=== PATIENT | male | born 1990 | race Hispanic/Latino ===

== ENCOUNTER 2018-07-13 13:22 | Emergency (ER) | payer OTHER ==
[2018-07-13] MEDS ORDERED: ORPHENADRINE CITRATE 30 MG/ML ML ONE (14:31)
[2018-07-13] MEDS ORDERED: KETOROLAC TROMETHAMINE 60 MG/2 ML VIAL ONE (14:31)
== END 2018-07-13 15:17 | disposition home or self-care (01) ==
LOC: EDH 13:22
DX: S33.5XXA Sprain of ligaments of lumbar spine, initial encounter (principal); X50.0XXA Overexertion from strenuous movement or load, initial encounter; Y93.89 Activity, other specified; Y92.89 Other specified places as the place of occurrence of the external cause; Y99.8 Other external cause status
CPT/HCPCS: 72100; 96372 ×2; 99283; J1885; J2360

== ENCOUNTER 2019-09-28 10:47 | Day surgery (SDC) | payer OTHER ==
[2019-09-26 14:28] LABS: BASOPHILS % (AUTO) 0.4 % (0.0-5.0); EOSINOPHILS % (AUTO) 1.8 % (0.0-8.0); HEMATOCRIT 42.7 % (42-54); LYMPHOCYTES % (AUTO) 35.2 % (21.0-51.0); MEAN CORPUSCULAR HEMOGLOBIN 29.1 pg (27.0-33.0); MONOCYTES % (AUTO) 7.5 % (3.0-13.0); NEUTROPHILS % (AUTO) 54.9 % (40.0-77.0); PLATELET COUNT (AUTO) 209 K/uL (130-400); RED BLOOD CELL COUNT(AUTO) 4.85 MIL/uL (4.50-6.20); RED CELL DISTRIBUTION WIDTH 13.2 % (11.0-15.5); WHITE BLOOD COUNT (AUTO) 4.9 K/uL (4.8-10.8)
[2019-09-26 14:44] LABS: POTASSIUM 4.3 mmol/L (3.5-5.1)
[2019-09-27 11:31] VITALS: BP 153/74
--- NOTE | 2019-09-27 11:50 | NUR ---
MEDS DR. BO INFORMED THAT PT WAS ON PO ANTIBIOTICS DUE TO TOOTH INFECTION , NO FURTHER ORDERS GIVEN.
[2019-09-28] VITALS (18 sets, daily range): BP systolic 130–151; BP diastolic 78–90
[~2019-09-28] VITALS: Ht 167.6 cm; Wt 97.7 kg
[~2019-09-28 10:47] MED LIST: PENI500T2 PO
[2019-09-28] MEDS ORDERED: LACTATED RINGERS 1000ML 1,000 ML IV ONE (11:04)
[2019-09-28] MEDS: CEFAZOLIN SODIUM 1 GM VIAL IVP SCH ×2 (11:50→15:00)
[2019-09-28] MEDS ORDERED: LIDOCAINE PF 2% 5ML ABBOJECT ONE (13:40)
[2019-09-28] MEDS ORDERED: PROPOFOL 10 MG/ML 20ML VIAL IV ONE (13:41)
[2019-09-28] MEDS ORDERED: MIDAZOLAM HCL 1 MG/ML 2ML VIAL ONE (13:41)
[2019-09-28] MEDS ORDERED: ROCURONIUM 10MG/1ML SYR 10 MG/ML ML ONE ×2 (13:41→15:16)
[2019-09-28] MEDS ORDERED: DEXAMETHASONE SOD PHOSPHATE 10MG/ML 1ML VIAL ONE (13:41)
[2019-09-28] MEDS ORDERED: FENTANYL CITRATE PF 50 MCG/1 ML 5ML AMP IV ONE (13:41)
[2019-09-28] MEDS ORDERED: GLYCOPYRROLATE 1 MG/5 ML SYRINGE ONE (13:42)
[2019-09-28] MEDS ORDERED: NEOSTIGMINE 5MG/5ML SYR IV ONE (13:42)
[2019-09-28] MEDS ORDERED: ONDANSETRON HCL 4 MG/2 ML VIAL ONE (13:42)
[2019-09-28] MEDS ORDERED: EPINEPHRINE 1 MG/ML 30ML VIAL IJ ONE (13:54)
[2019-09-28] MEDS ORDERED: ROPIVACAINE 0.5% 5MG/ML 30ML IJ ONE (13:55)
[2019-09-28] MEDS ORDERED: EPHEDRINE SULFATE 50 MG/ML AMPULE ONE (14:39)
[2019-09-28] MEDS ORDERED: HETASTARCH IN 0.9 % NACL 500 ML IV ONE (14:44)
[2019-09-28] MEDS ORDERED: PHENYLEPHRINE HCL 10 MG/ML 1ML VIAL IV ONE (15:45)
[2019-09-28] MEDS ORDERED: NAPR-1023 PO (17:22)
[2019-09-28] MEDS ORDERED: CEPH500B PO (17:22)
[2019-09-28] MEDS ORDERED: HYDR-4457 PO (17:22)
[2019-09-28] MEDS ORDERED: KETOROLAC TROMETHAMINE 30MG/ML ONE (17:24)
--- NOTE | 2019-09-28 18:45 | NUR ---
ASSESSMENT RECEIVED PT FROM PACU STAFF DENG RN. PT [id number]. RIGHT ARM IN SLING. DRSG DRY AND INTACT. NO BLEEDING, OOZING NOTED TO SITE. DENIES ANY PAIN. CALL LIGHT WITHIN REACH.
--- NOTE | 2019-09-28 19:40 | NUR ---
DISCHARGE ORAL AND WRITTEN DISCHARGE INSTRUCTIONS GIVEN TO PT AND PTS ALONG WITH PRESCRIPTION. INSTRUCTED ON IMPORTANCE OF FOLLOWING INSTRUCTIONS GIVEN BY DR. BO. BOTH VERBALIZED UNDERSTANDING.
== END 2019-09-28 19:45 | disposition home or self-care (01) ==
LOC: DAH 10:47
PROVIDERS: ATTEND Orthopaedic Surgery
DX: S43.491A Other sprain of right shoulder joint, initial encounter (principal); M24.811 Other specific joint derangements of right shoulder, not elsewhere classified; M19.011 Primary osteoarthritis, right shoulder; I10 Essential (primary) hypertension; E78.00 Pure hypercholesterolemia, unspecified; X58.XXXA Exposure to other specified factors, initial encounter; Y93.89 Activity, other specified; Y92.69 Other specified industrial and construction area as the place of occurrence of the external cause; Y99.0 Civilian activity done for income or pay; Z79.899 Other long term (current) drug therapy; Z98.890 Other specified postprocedural states
CPT/HCPCS: 29807; 36415; 64415; 76942; 80048; 85025; A4215; A4221; A4222; A4223; A4565; A4649 ×6; A4663; A4930 ×2; A5120; A6204; C1713; G0168; J0171; J0690; J1100; J1885; J2001; J2250; J2370; J2405; J2704; J2710; J2795; J3010; J3490 ×3; J7120 ×2

== ENCOUNTER → 2020-02-23 | Outpatient (CLI) | payer OTHER ==
[~2020-02-23] MED LIST changes: +CEPH500B PO; +HYDR-4457 PO; +NAPR-1023 PO; -PENI500T2 PO
== END | disposition home or self-care (01) ==
LOC: LAB 11:18
PROVIDERS: ATTEND Orthopaedic Surgery
DX: S43.431A Superior glenoid labrum lesion of right shoulder, initial encounter (principal); X58.XXXA Exposure to other specified factors, initial encounter; Y92.89 Other specified places as the place of occurrence of the external cause; Y93.89 Activity, other specified; Y99.8 Other external cause status
CPT/HCPCS: 36415; 82565; 84520

== ENCOUNTER → 2020-02-27 | Outpatient (CLI) | payer OTHER ==
[~2020-02-27] MED LIST changes: +GADODIAMIDE 10 MMOL/20 ML VIAL IV ONE; +IBUP-2071 PO; +IBUP-2077 PO; +ISOVUE-M 200 20 ML VIAL IT ONE; +LIDOCAINE HCL 1% 20 ML VIAL ONE
== END | disposition home or self-care (01) ==
LOC: RAH 12:50
PROVIDERS: ATTEND Orthopaedic Surgery
DX: S43.431A Superior glenoid labrum lesion of right shoulder, initial encounter (principal); X58.XXXA Exposure to other specified factors, initial encounter; Y93.89 Activity, other specified; Y92.89 Other specified places as the place of occurrence of the external cause; Y99.8 Other external cause status
CPT/HCPCS: 23350; 73223; 77002; A9579; Q9966

== ENCOUNTER 2020-03-21 06:05 | Day surgery (SDC) | payer OTHER ==
[2020-03-14 09:38] LABS: BASOPHILS % (AUTO) 0.6 % (0.0-5.0); EOSINOPHILS % (AUTO) 2.2 % (0.0-8.0); HEMATOCRIT 43.5 % (42-54); LYMPHOCYTES % (AUTO) 31.2 % (21.0-51.0); MEAN CORPUSCULAR HEMOGLOBIN 29.1 pg (27.0-33.0); MEAN CORPUSCULAR HGB CONC 33.8 g/dL (32.0-36.0); MEAN CORPUSCULAR VOLUME 86.1 fL (79-99); NEUTROPHILS % (AUTO) 59.3 % (40.0-77.0); PLATELET COUNT (AUTO) 226 K/uL (130-400); RED BLOOD CELL COUNT(AUTO) 5.05 MIL/uL (4.50-6.20); WHITE BLOOD COUNT (AUTO) 6.8 K/uL (4.8-10.8)
[2020-03-14 09:51] LABS: CREATININE 0.9 mg/dL (0.5-1.5); POTASSIUM 4.8 mmol/L (3.5-5.1)
[2020-03-19 09:46] VITALS: BP 145/85
--- NOTE | 2020-03-20 13:05 | NUR ---
REPORT CALLED DR BO AND INFORMED HIM PT HAS BEEN TAKING IBUPROFEN ON A REGULAR BASIS. PER OK TO PROCEED. NO NEW ORDERS AT THIS TIME GIVEN
[2020-03-21] VITALS (18 sets, daily range): BP systolic 136–175; BP diastolic 80–111
[~2020-03-21] VITALS: Ht 170.2 cm; Wt 101.2 kg
[2020-03-21] MEDS: CEFAZOLIN SODIUM 1 GM VIAL IVP SCH ×2 (05:00→08:30)
[~2020-03-21 06:05] MED LIST changes: -GADODIAMIDE 10 MMOL/20 ML VIAL IV ONE; -IBUP-2071 PO; -ISOVUE-M 200 20 ML VIAL IT ONE; -LIDOCAINE HCL 1% 20 ML VIAL ONE
[2020-03-21] MEDS ORDERED: LACTATED RINGERS 1000ML 1,000 ML IV ONE (06:07)
[2020-03-21] MEDS ORDERED: EPINEPHRINE 1 MG/ML 30ML VIAL IJ ONE (07:11)
[2020-03-21] MEDS ORDERED: MIDAZOLAM HCL 1 MG/ML 2ML VIAL ONE ×2 (07:43→07:58)
[2020-03-21] MEDS ORDERED: ONDANSETRON HCL 4 MG/2 ML VIAL ONE (07:57)
[2020-03-21] MEDS ORDERED: PROPOFOL 10 MG/ML 20ML VIAL IV ONE (07:57)
[2020-03-21] MEDS ORDERED: LIDOCAINE PF 2% 5ML ABBOJECT ONE (07:57)
[2020-03-21] MEDS ORDERED: DEXAMETHASONE SOD PHOSPHATE 10MG/ML 1ML VIAL ONE (07:57)
[2020-03-21] MEDS ORDERED: ROCURONIUM 10MG/1ML SYR 10 MG/ML ML ONE ×2 (07:58→09:01)
[2020-03-21] MEDS ORDERED: FENTANYL CITRATE PF 50 MCG/1 ML 2ML VIAL ONE ×2 (07:58→09:01)
[2020-03-21] MEDS ORDERED: ROPIVACAINE 0.5% 5MG/ML 30ML IJ ONE (08:01)
[2020-03-21] MEDS ORDERED: EPHEDRINE SULFATE 50 MG/ML AMPULE ONE (09:08)
[2020-03-21] MEDS ORDERED: CEPH500B PO ×2 (10:02)
[2020-03-21] MEDS ORDERED: IBUP-2071 PO ×2 (10:02)
[2020-03-21] MEDS ORDERED: HYDR-4457 PO ×2 (10:02)
== END 2020-03-21 12:15 | disposition home or self-care (01) ==
LOC: DAH 06:05
PROVIDERS: ATTEND Orthopaedic Surgery
DX: S43.431A Superior glenoid labrum lesion of right shoulder, initial encounter (principal); Z20.828 Contact with and (suspected) exposure to other viral communicable diseases; M19.011 Primary osteoarthritis, right shoulder; M75.51 Bursitis of right shoulder; M25.811 Other specified joint disorders, right shoulder; I10 Essential (primary) hypertension; E66.9 Obesity, unspecified; G89.29 Other chronic pain; F17.210 Nicotine dependence, cigarettes, uncomplicated; Z98.890 Other specified postprocedural states; Z82.49 Family history of ischemic heart disease and other diseases of the circulatory system; X58.XXXA Exposure to other specified factors, initial encounter
CPT/HCPCS: 29823; 29826; 36415; 64415; 76942; 80048; 85025; A4215; A4221; A4222; A4223; A4565; A4615; A4649 ×3; A4657; A4663; A4930; A6204; C9803; G0168; J0171; J0690; J1100; J2001; J2250 ×2; J2405; J2704; J2795; J3010 ×2; J3490; J7030; J7120; U0003